=== PATIENT | male | born 1995 | race Two or more races ===

== ENCOUNTER 2020-08-15 07:13 | Outpatient (CLI) | payer OTHER | END 2020-08-15 07:14 | disposition home or self-care (01) | LOC: PPH VACUNA 07:13 | DX: Z23 Encounter for immunization (principal) ==

== ENCOUNTER → 2021-05-21 | Outpatient (CLI) | payer OTHER | END | disposition home or self-care (01) | LOC: PPH VACUNA 08:00 | PROVIDERS: ATTEND Emergency Medicine Pediatric Emergency Medicine | DX: Z23 Encounter for immunization (principal) ==